=== PATIENT | male | born 1965 | race Two or more races ===

== ENCOUNTER 2024-04-26 18:08 | Emergency (ER) | payer MEDICAID, OTHER ==
[~2024-04-26] VITALS: Ht 175.3 cm; Wt 108.9 kg
[2024-04-26] MEDS: IV NS 0.9% 1,000 ML BAG IV ONE (18:30)
[2024-04-26 19:04] LABS: EOSINOPHILS % (AUTO) 0.2 % (0.0-6.0); HEMATOCRIT 47 % (39-51); HEMOGLOBIN 15.5 g/dL (13.5-17.5); LYMPHOCYTES # (AUTO) 2.1 K/uL (0.8-4.8); LYMPHOCYTES % (AUTO) 11.4 % (20.0-44.0); MEAN CORPUSCULAR HEMOGLOBIN 28 PG (26.0-33.0); MEAN CORPUSCULAR HGB CONC 33 g/dl (31.0-36.0); MEAN CORPUSCULAR VOLUME 87 fL (80-96); MONOCYTES # (AUTO) 0.4 K/uL (0.1-1.30); MONOCYTES % (AUTO) 2.2 % (2.0-12.0); NEUTROPHILS % (AUTO) 86.2 % (43.0-81.0); PLATELET COUNT (AUTO) 244 K/uL (150-450); RED BLOOD CELL COUNT(AUTO) 5.45 MIL/uL (4.5-6.0); RED CELL DISTRIBUTION WIDTH 13.7 % (11.5-15.0); WHITE BLOOD COUNT (AUTO) 18.6 K/uL (4.3-11.0)
[2024-04-26 19:23] LABS: CALCIUM, SERUM 8.9 mg/dL (8.5-10.1); CARBON DIOXIDE 27 mmol/L (21-32); CHLORIDE 104 mmol/L (98-107); CREATININE 1.4 mg/dL (0.6-1.3); GLUCOSE 134 mg/dL (74-106); SODIUM SERUM 142 mmol/L (136-145); UREA NITROGEN, BLOOD 17 mg/dL (7-18)
[2024-04-26 19:35] LABS: ALANINE AMINOTRANSFERASE 24 U/L (12-78); ALBUMIN 3.7 g/dL (3.4-5.0); ALKALINE PHOSPHATASE 116 U/L (46-116); ASPARTATE AMINOTRANSFERASE 18 U/L (15-37); BILIRUBIN,DIRECT 0.1 mg/dL (0.0-0.2); BILIRUBIN,TOTAL 0.4 mg/dL (0.2-1.0); NT-PRO BNP 40 pg/mL (0-125); TOTAL PROTEIN, SERUM 7.4 g/dL (6.4-8.2)
[2024-04-26] MEDS: POTASSIUM CHLORIDE 20 MEQ POWDER PACKET PO ONE (21:03)
[2024-04-26 22:07] VITALS: BP 136/86; O2SAT 96
== END 2024-04-26 22:07 | disposition home or self-care (01) ==
LOC: ER 18:11
DX: R19.7 Diarrhea, unspecified (principal); R55 Syncope and collapse
CPT/HCPCS: 99285; 96360; 71045; 93005; 85025; 80048; 80076; 36415; 84484; 83880; 82962; J7030; A4223